=== PATIENT | male | born 2000 | race African-American/Black ===

== ENCOUNTER 2018-06-24 19:34 | Emergency (ER) | payer OTHER, SELFPAY ==
[2018-06-24 19:35] VITALS: BP 122/65; PULSE 57; RESP 17; TEMP 37.6; O2SAT 97; BMI 27.1
--- NOTE | 2018-06-24 20:41 | CT_ITS ---
STUDY: CT BRAIN WITHOUT CONTRAST REASON FOR EXAM: Male, 17 years old. Headache RADIATION DOSAGE (If Supplied By Facility): CTDIvol = ( 44.99 ) mGy, DLP = ( 779.24 ) mGycm TECHNIQUE: Transaxial CT imaging of the brain was performed without administration of intravenous contrast material. Individualized dose optimization techniques were used for this CT. COMPARISON: None. FINDINGS: There is no acute bleed or infarct. There are normal white matter tracts. The ventricles are normal in configuration. There is no hydrocephalus. The visualized paranasal sinuses are clear. The mastoid air cells are well aerated. There is no skull fracture. CT/Brain/Head without Contrast IMPRESSION: No acute intracranial abnormality. Electronically Signed: Xu Morin, at 21:29 EDT Tel , Service support ,
--- NOTE | 2018-06-24 20:43 | ED.VISSUMM ---
- ER Visit Summary Date of Service: 06/24/18 Chief Complaint: Headache History of Present Illness: The patient is a 17 M who presents with headache since last night. Patient began developing a headache last night while at rest. It is worse if he bends over and if he moves his eyes laterally. He has sharp pain in his temples with movement of the eyes. He has pressure in the posterior head with bending forward to tie his shoe. Pain is improved with Excedrin, decreased sound, and darkness. He has associated nausea. Denies any vision changes, fever, sore throat, abdominal pain, vomiting, weakness or numbness in the arms or legs. 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 He had a right rib injury and is not been playing since. Patient is a college student and states he got the meningitis vaccinations. No history of prior headaches. Physical Examination: Vital signs: afebrile, hemodynamically stable, no hypoxia on room air General: well nourished, well developed, in no distress, tolerating the light on Skin: warm, dry, no rash, no pallor, no petechiae or purpura, no vesicles HEENT: normocephalic and atraumatic; tenderness to palpation of the bilateral temples, PERRL, EOMI, no nystagmus, moist mucous membranes Neck: Supple, diffuse bilateral paraspinal tenderness into the trapezius of the upper shoulders, full active flexion and extension, mild discomfort with flexion, negative jolt sign, no pain with [id number] movement Cardiovascular: regular rate and rhythm without murmurs, no peripheral edema, 2+ pulses all distal extremities Respiratory: No increased work of breathing, lungs are clear to auscultation bilaterally, no rales, rhonchi or wheezing, chest wall tenderness on the right along the lateral ribs, no contusion, crepitus or deformity Abdominal: Abdomen is soft, nontender with normoactive bowel sounds, no guarding or rebound, no masses MSK: Moves all extremities, no deformities, normal strength Neuro: Awake and alert, oriented ?4. No facial droop, sensation and motor function intact and symmetric Test Results: Clinical Impression(s) from Imaging Studies Brain CT 06/24/18 20:41 IMPRESSION: No acute intracranial abnormality. Electronically Signed: Xu Morin, at 21:29 EDT Tel , Service support , Chest X-Ray 06/24/18 21:15 IMPRESSION: No acute thoracic pathology. Electronically Signed: Xu Morin, at 21:42 EDT Tel , Service support , Abnormal Lab Results 06/24/18 06/24/18 20:49 20:49 WBC 6.3 RBC 4.80 Hgb 13.6 Hct 41.8 MCV 87.1 MCH 28.3 MCHC 32.5 RDW 12.0 RDW Differential 38.2 Plt Count 252 MPV 8.2 Sodium 135 L Potassium 3.7 Chloride 101 Carbon Dioxide 28.0 Anion Gap 6 BUN 11 Creatinine 1.37 H Estim Creat Clear Calc 92.37 Est GFR (MDRD) Af Amer 85 Est GFR (MDRD) Non-Af 71 BUN/Creatinine Ratio 8.0 L Glucose 82 Calcium 9.0 Medications Given Discontinued Medications Diphenhydramine HCl (Benadryl) 25 mg IV X1 ONE Stop: 06/24/18 20:42 Last Admin: 06/24/18 20:53 Dose: 25 mg Sodium Chloride () 1,000 mls @ 999 mls/hr IV .Q1H1M ONE Stop: 06/24/18 21:41 Last Admin: 06/24/18 20:52 Dose: 999 mls/hr Ketorolac Tromethamine (Toradol) 15 mg IV X1 ONE Stop: 06/24/18 20:42 Last Admin: 06/24/18 20:53 Dose: 15 mg Metoclopramide HCl (Reglan) 10 mg IV X1 ONE Stop: 06/24/18 20:42 Last Admin: 06/24/18 20:53 Dose: 10 mg Emergency Department Course and Treatment: Patient was given IV fluids, Toradol, Reglan and Benadryl for his headache. Given his history of recent full contact football, head CT was performed to evaluate for any subacute bleed. He had was negative for any intracranial hemorrhage, mass lesion or other acute pathology. Patient is afebrile and does not have any meningeal signs or other signs of infection that would be concerning for acute bacterial meningitis. Labs were performed showing no leukocytosis, and normal BMP with the exception of an elevated creatinine of 1.37, with no labs available for comparison. Chest x-ray was performed given the right rib injury, and patient had no pneumothorax, pneumonia, or obvious rib fractures on x-ray. Patient was reevaluated after period of observation and had almost complete resolution of his headache, stating he felt much better. We discussed return precautions. Patient will stay hydrated and use [id number] pain medication as needed for any further headache. Discharged home in improved condition. Treatment Plan: [] Disposition: [] Impression: Acute cephalgia, right rib contusions, renal insufficiency This note was generated with [employer] dictation software. It may contain incorrect words, spelling, and punctuation that were not noted in review of the chart prior to signing ED Disposition - Plan for ED Patient: Disposition: Home or Assisted Living Chief Complaint: Headache Instructions: ED Cephalgia Unspecified Referrals: [facility] Doctor,Out of [Primary Care Provider] - 1-2 Days if not improving Additional Instructions: Use [id number] pain medications as needed for any further headache and for your rib pain. Drink plenty of fluids to stay hydrated. If you develop a high fever, worsening headache, stiff neck, severe decrease in energy, rash, or any other concerning symptoms, return immediately to the emergency department for another evaluation. Please follow-up with your doctor within the next few weeks for reevaluation of your kidney function. Show your doctor the following lab work: Creatinine 1.37 BUN 11 If you have any worsening of your condition or any new concerning symptoms, please return immediately to the emergency department for another evaluation.
[2018-06-24] MEDS: 0.9% Normal Saline 1,000 ML 999 ML IV (20:52)
[2018-06-24] MEDS: DiphenhydrAMINE 50 MG/ML Syringe 25 MG IV (20:53)
[2018-06-24] MEDS: Metoclopramide 10 MG/2 ML Vial IV (20:53)
[2018-06-24] MEDS: Ketorolac 30 MG/ML Syringe 15 MG IV (20:53)
[2018-06-24 21:01] LABS: Hematocrit 41.8 % (40-54); Hemoglobin 13.6 g/dl (13.0-16.5); Mean Corp Hgb Conc 32.5 g/gl (32-36); Mean Corpuscular Hgb 28.3 pg (27.0-32.0); Mean Corpuscular Volume 87.1 fL (80-94); Mean Platelet Vol. 8.2 fl (6.2-12.0); Platelet Count 252 K/mm3 (150-450); RBC Distribution Width SD 38.2 fl (35.1-43.9); White Blood Count 6.3 K/mm3 (4.4-11.0)
[2018-06-24 21:09] LABS: Scan Indicated on CBC? Y/N NO
--- NOTE | 2018-06-24 21:15 | RAD_ITS ---
STUDY: X-RAY CHEST REASON FOR EXAM: Male, 17 years old. Headache TECHNIQUE: Frontal and lateral views of the chest COMPARISON: None. FINDINGS: The lungs are clear. There are no pleural effusions. There is no pneumothorax. The heart is normal in size. The visualized osseous structures are within normal limits. RAD/Chest PA and Lateral IMPRESSION: No acute thoracic pathology. Electronically Signed: Xu Morin, at 21:42 EDT Tel , Service support ,
[2018-06-24 21:22] LABS: Anion Gap 6 (5-15); BUN 11 mg/dL (7-18); Chloride 101 mmol/L (98-107); Creatinine, Serum 1.37 mg/dL (0.70-1.30); EST Glomerular Filtration Rate 71 mL/min (>60); Est Glom Filt Rate - Afr Amer 85 mL/min (>60); Estimated Creatinine Clearance 92.37 ml/min; Glucose 82 mg/dL (74-106); Potassium 3.7 mmol/L (3.5-5.1); Sodium Level 135 mmol/L (136-145)
[2018-06-24 22:21] VITALS: BP 150/63; PULSE 91; RESP 16; O2SAT 100
--- NOTE | 2018-06-24 23:19 | DCINST.ED_ITS ---
ED Disposition - Plan for ED Patient: Disposition: Home or Assisted Living Chief Complaint: Headache Instructions: ED Cephalgia Unspecified Referrals: [facility] Doctor,Out of [Primary Care Provider] - 1-2 Days if not improving Additional Instructions: Use [id number] pain medications as needed for any further headache and for your rib pain. Drink plenty of fluids to stay hydrated. If you develop a high fever, worsening headache, stiff neck, severe decrease in energy, rash, or any other concerning symptoms, return immediately to the emergency department for another evaluation. Please follow-up with your doctor within the next few weeks for reevaluation of your kidney function. Show your doctor the following lab work: Creatinine 1.37 BUN 11 If you have any worsening of your condition or any new concerning symptoms, please return immediately to the emergency department for another evaluation.
[2018-06-24 23:25] VITALS: BP 129/71; PULSE 58; RESP 16; O2SAT 96
== END 2018-06-24 23:26 | disposition home or self-care (01) ==
PROVIDERS: Emergency Provider Emergency Medicine
DX: R51 Headache (principal); N28.9 Disorder of kidney and ureter, unspecified; S20.211A Contusion of right front wall of thorax, initial encounter; X58.XXXA Exposure to other specified factors, initial encounter; Y93.9 Activity, unspecified; Y92.9 Unspecified place or not applicable; Y99.9 Unspecified external cause status
CPT/HCPCS: 70450; 71046; 80048; 85027; 99284; J7030; A4216